=== PATIENT | female | born 1995 | race Caucasian/White ===

== ENCOUNTER → 2017-12-22 16:47 | Outpatient (REF) | payer MEDICAID, SELFPAY | LOC: LAB 16:47 | PROVIDERS: Visit Provider Nurse Practitioner Obstetrics & Gynecology | DX: Z34.90 Encounter for supervision of normal pregnancy, unspecified, unspecified trimester (principal); Z3A.37 37 weeks gestation of pregnancy | CPT/HCPCS: 86403 ==